=== PATIENT | female | born 1990 | race Two or more races ===

== ENCOUNTER 2017-11-01 20:00 | Emergency (ER) | payer SELFPAY ==
[~2017-11-01] VITALS: Ht 162.6 cm; Wt 93.4 kg
[2017-11-01 20:00] VITALS: BP 145/83
== END 2017-11-01 21:21 | disposition home or self-care (01) ==
LOC: ER 20:03
DX: G51.0 Bell's palsy (principal)
CPT/HCPCS: A4606; Z7610

== ENCOUNTER 2018-09-01 03:16 | Emergency (ER) | payer BC, OTHER ==
[~2018-09-01] VITALS: Ht 162.6 cm; Wt 90.7 kg
[2018-09-01 03:31] VITALS: BP 127/78
[2018-09-01 04:09] LABS: APPEARANCE,URINE SL CLOUDY (CLEAR); BILIRUBIN,URINE NEGATIVE (NEGATIVE); BLOOD, URINE 1+ Ery/uL (NEGATIVE); COLOR,URINE YELLOW (YELLOW); KETONES,URINE NEGATIVE (NEGATIVE); LEUKOCYTE ESTERASE ,URINE 2+ (NEGATIVE); NITRITE, URINE NEGATIVE (NEGATIVE); PROTEIN,URINE NEGATIVE (NEGATIVE); UGLUCOSE NEGATIVE (NEGATIVE); UROBILINOGEN,URINE 0.2 EU/dL (0.2)
[2018-09-01 04:16] LABS: BACTERIA,URINE Few /HPF (None Seen); SQUAMOUS EPITHELIAL CELL,UR Few /HPF (None Seen); WBC,URINE TOO NUMEROUS TO COUN /HPF (0-3)
[2018-09-01] MEDS ORDERED: PHENAZOPYRIDINE HCL 200 MG TABLET PO ONE (05:00)
[2018-09-01] MEDS ORDERED: CIPROFLOXACIN HCL 250 MG TABLET PO ONE (05:00)
== END 2018-09-01 05:06 | disposition home or self-care (01) ==
LOC: ER 03:19
DX: N39.0 Urinary tract infection, site not specified (principal); Z90.89 Acquired absence of other organs
CPT/HCPCS: 81001; 84703; 87086; 99283; A4606; Z7610; 81000-TC